=== PATIENT | female | born 2000 | race Two or more races ===

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

== ENCOUNTER → 2020-01-22 14:20 | Outpatient (CLI) | payer OTHER ==
[~2020-01-22 14:20] MED LIST: PRENATAL + DHA1 EAC1 PO
== END | disposition home or self-care (01) ==
LOC: LAB 14:20
PROVIDERS: ATTEND Pediatrics
DX: Z00.00 Encounter for general adult medical examination without abnormal findings (principal); O91.23 Nonpurulent mastitis associated with lactation

== ENCOUNTER 2020-01-23 17:14 | Inpatient (IN) | payer OTHER ==
[~2020-01-23] VITALS: Ht 12.7 cm; Wt 70.8 kg
== END 2020-01-29 16:05 | disposition home or self-care (01) | DRG 776 ==
LOC: EMR PED 17:14 → SEC-K 19:20 → OB/GYN 19:20
PROVIDERS: ADMIT Obstetrics & Gynecology Obstetrics; ATTEND Obstetrics & Gynecology Obstetrics
DX: O91.22 Nonpurulent mastitis associated with the puerperium (principal); O91.13 Abscess of breast associated with lactation; Z20.828 Contact with and (suspected) exposure to other viral communicable diseases